=== PATIENT | female | born 1980 | race Caucasian/White ===

== ENCOUNTER 2016-10-22 19:50 | Emergency (ER) | payer SELFPAY ==
[2016-10-22] MEDS ORDERED: Ketorolac Tromethamine 60 MG/2 ML VIAL ONE (20:07)
[2016-10-22] MEDS ORDERED: Sulfameth/Trimethoprim DS 800-160mg TAB ONE (20:15)
[2016-10-22] MEDS ORDERED: HYDROcodone/Acetaminophen 10/325 mg Tablet ONE (20:15)
--- NOTE | 2016-10-22 20:39 | RAD ---
FIFTH FINGER LEFT HAND: 10/22/16 HISTORY: Pain and swelling x1 week. No fracture or dislocation. No osseous or soft tissue abnormality seen. IMPRESSION: No acute findings. POS: [facility]
== END 2016-10-22 20:46 | disposition home or self-care (01) ==
LOC: NAV ERS 19:50
DX: L03.012 Cellulitis of left finger (principal); F31.9 Bipolar disorder, unspecified; F17.210 Nicotine dependence, cigarettes, uncomplicated
CPT/HCPCS: J1885

== ENCOUNTER 2017-11-03 19:49 | Emergency (ER) | payer SELFPAY ==
[2017-11-03] MEDS ORDERED: methylPREDNISolone Acetate 40 mg/ml Vial ONE (20:34)
[2017-11-03] MEDS ORDERED: Water For Inject, Bacteriostat 30 ML ONE (20:34)
== END 2017-11-03 21:13 | disposition home or self-care (01) ==
LOC: NAV ERS 19:49
DX: J06.9 Acute upper respiratory infection, unspecified (principal); J20.9 Acute bronchitis, unspecified; F31.9 Bipolar disorder, unspecified; F17.210 Nicotine dependence, cigarettes, uncomplicated
CPT/HCPCS: 87804; 96372; J1030

== ENCOUNTER 2018-02-12 17:48 | Emergency (ER) | payer OTHER, SELFPAY ==
[2018-02-12] MEDS ORDERED: Lorazepam 2 MG/ML VIAL ONE (18:13)
== END 2018-02-12 18:55 | disposition home or self-care (01) ==
LOC: NAV ERS 17:48
DX: F41.9 Anxiety disorder, unspecified (principal); F31.9 Bipolar disorder, unspecified; F17.210 Nicotine dependence, cigarettes, uncomplicated; Z71.6 Tobacco abuse counseling; Z79.899 Other long term (current) drug therapy
CPT/HCPCS: 96372; 99406; J2060

== ENCOUNTER 2018-02-15 17:04 | Emergency (ER) | payer OTHER ==
[2018-02-15] MEDS ORDERED: hydrOXYzine 25 MG TAB ONE (17:29)
[2018-02-15] MEDS ORDERED: Mag-Al Plus 1200 MG/1200 MG/120 MG/30 ML UDCUP ONE (18:05)
[2018-02-15] MEDS ORDERED: Lidocaine Viscous Sol 2% 15 ml UD Cup ONE (18:05)
--- NOTE | 2018-02-15 18:16 | RAD ---
PORTABLE CHEST: HISTORY: Chest pain. FINDINGS: The lungs are clear of infiltrate. The heart and mediastinum are unremarkable. Vascular markings ar e within the normal range. IMPRESSION: No acute process. POS: [facility]
== END 2018-02-15 18:12 | disposition home or self-care (01) ==
LOC: NAV ERS 17:04
DX: F45.8 Other somatoform disorders (principal); R07.89 Other chest pain; F31.9 Bipolar disorder, unspecified; F17.210 Nicotine dependence, cigarettes, uncomplicated; F41.9 Anxiety disorder, unspecified; Z79.899 Other long term (current) drug therapy
CPT/HCPCS: 71045; 93005

== ENCOUNTER 2018-06-18 04:25 | Emergency (ER) | payer OTHER | END 2018-06-18 05:20 | disposition home or self-care (01) | LOC: NAV ERS 04:25 | DX: J02.9 Acute pharyngitis, unspecified (principal) | CPT/HCPCS: 87081; 87430 ==

== ENCOUNTER 2018-06-18 21:22 | Emergency (ER) | payer OTHER ==
[2018-06-18] MEDS ORDERED: Sulfameth/Trimethoprim DS 800-160mg TAB ONE (22:11)
[2018-06-18] MEDS ORDERED: methylPREDNISolone Acetate 40 mg/ml Vial ONE (22:11)
== END 2018-06-18 22:40 | disposition home or self-care (01) ==
LOC: NAV ERS 21:22
DX: L50.0 Allergic urticaria (principal); L03.211 Cellulitis of face; B34.9 Viral infection, unspecified; F17.210 Nicotine dependence, cigarettes, uncomplicated; F41.9 Anxiety disorder, unspecified; F31.9 Bipolar disorder, unspecified
CPT/HCPCS: 87081; 87430; 96372; 99282; J1030

== ENCOUNTER 2018-08-11 17:24 | Emergency (ER) | payer OTHER, SELFPAY ==
[2018-08-11] MEDS ORDERED: Ondansetron PF 4 MG/2 ML Vial ONE (17:50)
[2018-08-11] MEDS ORDERED: Morphine 4 MG/ML VIAL ONE ×2 (17:50→18:19)
[2018-08-11] MEDS ORDERED: Sodium Chloride 0.9% 1,000 ML ONE (17:52)
[2018-08-11 18:20] LABS: BHCG - Serum Negative (NEGATIVE); Pregs Control Bar Appear? YES (CONTROL BAR)
[2018-08-11 18:21] LABS: Bilirubin Small (Negative); Blood, Urine Negative (Negative); Clarity Clear (Clear); Glucose, Urine (Dipstick) Negative (Negative); Leukocyte Negative (Negative); Nitrite Negative (Negative); Protein, Urine (Dipstick) Negative (Neg-Trace); Specific Gravity, Urine 1.028 (1.002-1.036); Urobilinogen 0.2 mg/dL (0.2-1.0)
[2018-08-11 18:23] LABS: #Basophils 0.1 thou/uL (0.0-0.2); #Eosinphils 0.2 thou/uL (0.0-0.7); #Lymphocytes 3.2 thou/uL (1.20-3.40); #Monocytes 0.7 thou/uL (0.11-0.59); #Neutrophils 12.7 thou/uL (1.40-6.50); %Basophils 0.7 % (0.0-1.0); %Lymphocytes 18.7 % (21.0-51.0); %Monocytes 3.9 % (0.0-10.0); %Neutrophils 75.7 % (42.0-75.0); Hemoglobin 13.3 g/dL (12.0-16.0); Mean Corpuscular Hemoglobin 29.9 pg (27.0-31.0); Mean Corpuscular Volume 90.4 fL (78.0-98.0); Mean Platelet Volume 8.7 fL (7.4-10.4); Platelet Count 286 thou/uL (130-400); RBC Distribution Width 13.4 % (11.5-14.5); Red Blood Cell (RBC) Count 4.44 mill/uL (4.20-5.40); White Blood Cell (WBC) Count 16.8 thou/uL (4.8-10.8)
[2018-08-11 18:25] LABS: ALT (SGPT) 28 U/L (8-55); AST (SGOT) 21 U/L (5-34); Albumin 4.4 g/dL (3.5-5.0); Alkaline Phosphatase 65 U/L (40-150); Anion Gap 14 mmol/L (10-20); BUN (Urea Nitrogen) 11 mg/dL (7.0-18.7); Bilirubin, Total 0.2 mg/dL (0.2-1.2); Calc. Creatinine Clearance 0 mL/min (70-130); Calcium 9.6 mg/dL (7.8-10.44); Carbon Dioxide 24 mmol/L (22-29); Chloride 105 mmol/L (98-107); Estimated GFR-MDRD Greater than 90; Globulin 2.8 g/dL (2.4-3.5); Glucose 95 mg/dL (70-105); Lipase 15 U/L (8-78); Potassium 3.5 mmol/L (3.5-5.1); Protein, Total 7.2 g/dL (6.0-8.3); Sodium 139 mmol/L (136-145)
[2018-08-11] MEDS ORDERED: Fentanyl 100 MCG/2 ML VIAL ONE (19:01)
--- NOTE | 2018-08-11 19:32 | RAD ---
KUB AND UPRIGHT AND PA CHEST: 08/11/18 HISTORY: Abdominal pain. The bowel gas pattern is nonobstructed. Mild amount of stool in the right colon and transverse colon are noted. No free air. No radiopaque calculi are seen. Postop cholecystectomy changes are present. PA CHEST: Heart size and mediastinum are within normal limits. The lungs are clear of infiltrates. Postoperativ e changes of the left clavicle are noted. IMPRESSION: No acute findings. POS: [facility]
== END 2018-08-11 19:50 | disposition short-term general hospital (02) ==
LOC: NAV ERS 17:24
DX: R10.9 Unspecified abdominal pain (principal); F41.9 Anxiety disorder, unspecified; F31.9 Bipolar disorder, unspecified; F17.210 Nicotine dependence, cigarettes, uncomplicated
CPT/HCPCS: 74022; 80053; 81003; 83690; 84703; 85025; 96361; 96374; 96375; J2270; J2405; J3010; J7050

== ENCOUNTER 2018-11-30 05:30 | Emergency (ER) | payer OTHER ==
[2018-11-30] MEDS ORDERED: Ondansetron ODT 4 MG TAB ONE (06:02)
== END 2018-11-30 06:15 | disposition home or self-care (01) ==
LOC: NAV ERS 05:30
DX: J06.9 Acute upper respiratory infection, unspecified (principal); F17.210 Nicotine dependence, cigarettes, uncomplicated; F41.9 Anxiety disorder, unspecified; F32.9 Major depressive disorder, single episode, unspecified
CPT/HCPCS: 87081; 87430; 87804; 99283; Q0162

== ENCOUNTER 2019-01-19 03:41 | Emergency (ER) | payer OTHER, SELFPAY ==
[2019-01-19] MEDS ORDERED: methylPREDNISolone Acetate 40 mg/ml Vial ONE (04:16)
== END 2019-01-19 04:36 | disposition home or self-care (01) ==
LOC: NAV ERS 03:41
DX: J01.90 Acute sinusitis, unspecified (principal); J04.0 Acute laryngitis; F31.9 Bipolar disorder, unspecified; F41.9 Anxiety disorder, unspecified; F32.9 Major depressive disorder, single episode, unspecified; F17.210 Nicotine dependence, cigarettes, uncomplicated
CPT/HCPCS: 96372; J1030

== ENCOUNTER 2019-07-06 20:23 | Emergency (ER) | payer SELFPAY | END 2019-07-06 20:47 | disposition home or self-care (01) | LOC: NAV ERS 20:23 | DX: J30.9 Allergic rhinitis, unspecified (principal); M79.10 Myalgia, unspecified site; R21 Rash and other nonspecific skin eruption; F17.210 Nicotine dependence, cigarettes, uncomplicated | CPT/HCPCS: 93005 ==

== ENCOUNTER 2022-05-19 00:15 | Emergency (ER) | payer BC, SELFPAY | END 2022-05-19 01:08 | disposition home or self-care (01) | LOC: NAV ERS 00:15 | DX: S29.012A Strain of muscle and tendon of back wall of thorax, initial encounter (principal); F17.210 Nicotine dependence, cigarettes, uncomplicated; X58.XXXA Exposure to other specified factors, initial encounter | CPT/HCPCS: 99283 ==

== ENCOUNTER 2023-03-16 13:39 | Emergency (ER) | payer OTHER | END 2023-03-16 15:05 | disposition home or self-care (01) | LOC: NAV ERS 13:39 | DX: F41.9 Anxiety disorder, unspecified (principal); N60.09 Solitary cyst of unspecified breast; F17.210 Nicotine dependence, cigarettes, uncomplicated | CPT/HCPCS: 99284 ==

== ENCOUNTER 2023-08-18 08:37 | Emergency (ER) | payer OTHER ==
[2023-08-18 08:46] LABS: #Basophils 0.1 thou/uL (0.0-0.2); #Eosinphils 0.2 thou/uL (0.0-0.7); #Lymphocytes 3.2 thou/uL (1.20-3.40); #Monocytes 0.5 thou/uL (0.11-0.59); #Neutrophils 3.6 thou/uL (1.40-6.50); %Eosinophils 2.7 % (0.0-10.0); %Lymphocytes 42.3 % (21.0-51.0); %Monocytes 6.9 % (0.0-10.0); %Neutrophils 47.1 % (42.0-75.0); Hematocrit 39.8 % (36.0-47.0); Hemoglobin 12.7 g/dL (12.0-16.0); Mean Corpuscular HGB CONC 31.9 g/dL (32.0-36.0); Mean Corpuscular Hemoglobin 29.8 pg (27.0-31.0); Mean Corpuscular Volume 93.4 fl (78.0-98.0); Mean Platelet Volume 9.1 fL (7.4-10.4); Platelet Count 222 10x3/uL (130-400); RBC Distribution Width 15.4 % (11.5-14.5); Red Blood Cell (RBC) Count 4.27 mill/uL (4.20-5.40); White Blood Cell (WBC) Count 7.6 10x3/uL (4.8-10.8)
[2023-08-18 08:54] LABS: INR-International Normal Ratio 0.9; Prothrombin Time 12.9 sec (12.0-14.7)
[2023-08-18 08:55] LABS: PTT 27.4 sec (22.9-36.1)
[2023-08-18] MEDS ORDERED: Iopamidol 370 76% 100 ML VIAL ONE (09:00)
[2023-08-18 09:04] LABS: ALT (SGPT) 15 U/L (8-55); AST (SGOT) 15 U/L (5-34); Alkaline Phosphatase 69 U/L (40-110); Anion Gap 15 mmol/L (10-20); BUN (Urea Nitrogen) 9 mg/dL (7.0-18.7); Bilirubin, Total 0.2 mg/dL (0.2-1.2); CK (CPK) 121 U/L (29-168); Calc. Creatinine Clearance 0 mL/min (70-130); Calcium 8.7 mg/dL (7.8-10.44); Carbon Dioxide 24 mmol/L (22-29); Chloride 109 mmol/L (98-107); Estimated GFR 78; Globulin 3.2 g/dL (2.4-3.5); Glucose 89 mg/dL (70-105); Potassium 3.1 mmol/L (3.5-5.1); Protein, Total 7.2 g/dL (6.0-8.3); Sodium 145 mmol/L (136-145)
[2023-08-18] MEDS ORDERED: Labetalol HCl 100 MG/20 ML VIAL ONE (09:04)
[2023-08-18] MEDS ORDERED: Aspirin Chewable 81 MG TAB ONE (09:11)
[2023-08-18 09:18] LABS: Troponin I 0.016 ng/mL (< 0.028)
[2023-08-18] MEDS ORDERED: Potassium Chloride 20 MEQ TAB ONE (09:26)
[2023-08-18] MEDS ORDERED: Famotidine 20 MG TAB ONE (15:35)
== END 2023-08-18 19:15 | disposition short-term general hospital (02) ==
LOC: NAV ERS 08:37
DX: E87.6 Hypokalemia (principal); I10 Essential (primary) hypertension; F17.290 Nicotine dependence, other tobacco product, uncomplicated
CPT/HCPCS: 36415; 70450; 70496; 80053; 82550; 84484; 85025; 85610; 85730; 93005; 96374; 96376; Q9967